=== PATIENT | male | born 1990 ===

== ENCOUNTER 2017-08-03 21:15 | Emergency (ER) | payer SELFPAY ==
--- NOTE | 2017-08-03 21:49 | ED PDOC ---
HPI: Trauma/Fall - HPI Time Seen by Provider: 08/03/17 21:24 Chief Complaint (Nursing): Trauma Chief Complaint (Provider): Trauma History Per: Patient History/Exam Limitations: no limitations Onset/Duration Of Symptoms: Mins (prior to arrival) Additional Complaint(s): Rosie Blakely is a 27 year old male with no past medical history who is presenting to the ER with complaints of headaches, dizziness and left lower back pain, s/p fall down stairs prior to arrival. Patient also reports right arm pain, and left heel pain. He denies any loss of consciousness, nausea, or vomiting. Patient offers no other medical complaints at this time. PMD: Doctor, Conversion Past Medical History Reviewed: Historical Data, Nursing Documentation, Vital Signs - Medical History PMH: No Chronic Diseases - Surgical History Surgical History: No Surg Hx - Family History Family History: States: Unknown Family Hx - Social History Current smoker - smoking cessation education provided: No Alcohol: None Drugs: Denies - Allergies Allergies/Adverse Reactions: Allergies Allergy/AdvReac Type Severity Reaction Status Date / Time No Known Allergies Allergy Verified 08/03/17 21:18 Review of Systems ROS Statement: Except As Marked, All Systems Reviewed And Found Negative Gastrointestinal: Negative for: Nausea, Vomiting Musculoskeletal: Positive for: Arm Pain, Back Pain, Foot Pain Neurological: Positive for: Headache, Dizziness. Negative for: Other (loss of consciousness) Physical Exam - Reviewed Nursing Documentation Reviewed: Yes Vital Signs Reviewed: Yes - Physical Exam Appears: Positive for: Non-toxic, No Acute Distress Head Exam: Positive for: ATRAUMATIC, NORMOCEPHALIC. Negative for: NORMAL INSPECTION ((-) abrasion to head) Skin: Positive for: Normal Color Neck: Positive for: Normal, Painless ROM Gastrointestinal/Abdominal: Positive for: Normal Exam, Tenderness (left lower side tenderness) Back: Positive for: Other (left lower back tenderness) Extremity: Positive for: Tenderness (left heel tenderness), Other (abrasion to left hand). Negative for: Normal ROM ((+) decreased ROM due to pain in left hand) Neurologic/Psych: Positive for: Alert, Oriented. Negative for: Motor/Sensory Deficits Medical Decision Making Medical Decision Making: Time: 21:55 Plan: --CT Abd/Pelvis --CT Head --X-Ray Left Hand --X-Ray Left Heel Wound irrigated. Antibiotic ointment applied. head CT and abdomen without acute abnormalities. Heel xr-ay without acute fracture or dislocation. Hand x-ray without acute fracture or dislocation. Scribe Attestation: Documented by Miguelina Martinez, acting as a scribe for Katie Harris PA-C. Provider Scribe Attestation: All medical record entries made by the Scribe were at my direction and personally dictated by me. I have reviewed the chart and agree that the record accurately reflects my personal performance of the history, physical exam, medical decision making, and the department course for this patient. I have also personally directed, reviewed, and agree with the discharge instructions and disposition Disposition - Clinical Impression Clinical Impression: Fall, Hand injury, Heel pain, Lower back pain, Headache, Abrasions of multiple sites - Patient ED Disposition Is Patient to be Admitted: No Counseled Patient/Family Regarding: Diagnosis, Need For Followup, Rx Given - Disposition Disposition: Routine/Home Disposition Time: 23:24 Condition: STABLE Instructions: Skin Abrasions (DC) Forms: [employer] ([place])
--- NOTE | 2017-08-03 22:55 | CT ---
EXAM: CT Head Without Intravenous Contrast EXAM DATE/TIME: 08/03/2017 9:55 PM CLINICAL HISTORY: 27 years old, male; Injury or trauma; Fall; Initial encounter; Abrasion and concussion / head injury; Consciousness not specified; Forehead; Injury details: Fell down stairs; Additional info: Headache, dizziness after fall TECHNIQUE: Axial computed tomography images of the head/brain without intravenous contrast. All CT scans at this facility use one or more dose reduction techniques, viz.: automated exposure control; ma/kV adjustment per patient size (including targeted exams where dose is matched to indication; i.e. head); or iterative reconstruction technique. Coronal and sagittal reformatted images were created and reviewed. COMPARISON: There are no prior studies for comparison. FINDINGS: Artifacts: Streak artifact degrades image quality. Brain and Ventricles: Ventricles are normal in size and configuration. There is no midline shift. There are no intra-axial or extra-axial mass lesions or areas of hemorrhage. There are no abnormal fluid collections. Torre-white differentiation is maintained. Bones: Cranial vault is intact. Soft tissues: There is right frontal scalp bruising. Sinuses: There is frontal, ethmoid and sphenoid sinusitis. There is minimal mucoperiosteal thickening in the maxillary sinuses. Ears and mastoids: Middle ears and mastoids are unremarkable Orbits: Orbital contents are unremarkable. IMPRESSION: Right frontal scalp bruising, no acute intracranial abnormality; sinusitis
--- NOTE | 2017-08-03 23:04 | CT ---
EXAM: CT Abdomen and Pelvis Without Intravenous Contrast EXAM DATE/TIME: 08/03/2017 9:55 PM CLINICAL HISTORY: 27 years old, male; Pain; Abdominal pain; Flank; Left; Additional info: Fall left sided pain TECHNIQUE: Axial computed tomography images of the abdomen and pelvis without intravenous contrast. All CT scans at this facility use one or more dose reduction techniques, viz.: automated exposure control; ma/kV adjustment per patient size (including targeted exams where dose is matched to indication; i.e. head); or iterative reconstruction technique. Coronal and sagittal reformatted images were created and reviewed. COMPARISON: There are no prior studies for comparison. FINDINGS: Lung bases: See below. Heart: Heart size is normal. Lung bases are clear. There is a small hiatal hernia. ABDOMEN: Liver: unremarkable Gallbladder and bile ducts: unremarkable Pancreas: unremarkable Spleen: unremarkable Adrenals: unremarkable Kidneys and ureters: Kidneys and ureters are unremarkable. There are no renal or ureteral stones. Stomach and bowel: The stomach is incompletely distended. Rotation is normal. There is fluid and air throughout the small bowel. There is no obstruction. Ileocecal region is unremarkable. Appendix and terminal ileum are unremarkable. Colon is incompletely distended which limits evaluation. PELVIS: Appendix: See stomach and bowel Bladder: unremarkable Reproductive: Seminal vesicles and prostate are unremarkable. ABDOMEN and PELVIS: Intraperitoneal space: There is no free air or free fluid. Bones/joints: There are no acute displaced rib fractures. There is minimal wedging at L1. Soft tissues: There is a small fat containing umbilical hernia. There is bruising and edema in the left buttock. There is bruising/edema in the soft tissues of the left low back. Vasculature: Vascular structures are unremarkable. Lymph nodes: There is shotty mesenteric adenopathy. IMPRESSION: Slightly limited evaluation of the abdomen and pelvis due to lack of intravenous contrast, no acute solid visceral or bowel injury; no renal or ureteral stones or hydronephrosis; shotty mesenteric adenopathy; minimal age indeterminate wedging at L1; bruising/edema in the soft tissues of the left lower back and left buttock Additional nonemergent findings as described above.
[2017-08-03] MEDS: Tdap Vaccine 0.5 ml Vial (10-64 yrs) IM ONE (23:27)
[2017-08-04 00:09] VITALS: BP 117/63; PULSE 82; RESP 18; TEMP 98; O2SAT 100
--- NOTE | 2017-08-04 07:47 | RAD ---
PROCEDURE: Left Hand Radiographs. HISTORY: pain s/p fall COMPARISON: None. FINDINGS: BONES: No acute fracture or destructive bony lesion identified. JOINTS: Normal. No osteoarthritic changes. SOFT TISSUES: Normal. OTHER FINDINGS: None. IMPRESSION: Unremarkable left hand radiographs.
--- NOTE | 2017-08-04 07:50 | RAD ---
PROCEDURE: BILATERAL HEELS RADIOGRAPHS HISTORY: pain after fall COMPARISON: None available. TECHNIQUE: Two views of each heel have been submitted for interpretation. FINDINGS: An impacted comminuted fracture of the posterior base of the right calcaneus is suspected. This can be better defined by MRI or CT. None is seen at the left. No subluxation or dislocation. No destructive bony lesion appreciable. Local soft tissues appear unremarkable bilaterally. IMPRESSION: Impacted comminuted fractures suspected right calcaneal base posteriorly. No evidence to suggest left calcaneal fracture. Follow-up CT or MRI are available for additional characterization if clinically warranted.
== END 2017-08-04 00:03 | disposition home or self-care (01) ==
LOC: H.ER 21:15
DX: S00.03XA Contusion of scalp, initial encounter (principal); M54.5 Low back pain; S69.92XA Unspecified injury of left wrist, hand and finger(s), initial encounter; S99.922A Unspecified injury of left foot, initial encounter; W10.9XXA Fall (on) (from) unspecified stairs and steps, initial encounter